=== PATIENT | female | born 1995 | race Two or more races ===

== ENCOUNTER 2017-03-29 20:51 | Emergency (ER) | payer MEDICAID ==
[~2017-03-29] VITALS: Ht 162.6 cm; Wt 77.6 kg
[2017-03-29] MEDS ORDERED: CLARITIN-D 241 EACH PO (20:56)
[2017-03-29 21:45] LABS: APPEARANCE,URINE CLEAR; KETONES,URINE NEGATIVE (NEGATIVE); LEUKOCYTE ESTERASE ,URINE 1+ (NEGATIVE); NITRITE,URINE NEGATIVE (NEGATIVE); PH,URINE 6 (4.5-8.0); PROTEIN,URINE 1+ (NEGATIVE); UROBILINOGEN,URINE 1 MG/DL (0.0-1.0)
[2017-03-29 21:50] LABS: ICTOTEST NEGATIVE
[2017-03-29 21:53] VITALS: BP 106/71
[2017-03-29 21:53] LABS: BACTERIA,URINE FEW /HPF; SQUAMOUS EPITHELIAL CELL,UR FEW /LPF (NONE/OCC); WBC,URINE 0-2 /HPF (0 - 2)
[2017-03-29] MEDS ORDERED: ZOFRAN ODT4 MG ORAL (22:03)
[2017-03-29] MEDS ORDERED: LEVOFLOXACIN750 MG ORAL (22:03)
[2017-03-29 23:00] VITALS: BP 108/69
--- NOTE | 2017-03-29 23:53 | Emergency Room Report ---
History of Present Illness General Chief Complaint: Abdominal Pain Source: Patient Present Illness HPI 22YOF with nausea/vomiting and watery diarrhea for 2 days Just came back from [place] Boyfriend and sibling sick with similar symptoms BF got better after Abx in [place] They drank the water locally Denies abd pain, urinary complaints Denies previous abd/pelvic surgery, other med problems Allergies: Coded Allergies: No Known Allergies (Unverified , 03/29/17) Patient History Past Medical History: none Past Surgical History: none Pertinent Family History: none Social History: Denies: alcohol use, drug use, smoking Last Menstrual Period: 03/27/17 Now: No : 0 Para: 0 Immunizations: UTD Reviewed Nursing Documentation: PMH: Agreed, PSxH: Agreed Nursing Documentation-PMH Past Medical History: No Stated History Review of Systems All Other Systems: negative except mentioned in HPI Physical Exam Vital Signs Date Time Temp Pulse Resp B/P Pulse Ox O2 Delivery O2 Flow Rate FiO2 03/29/17 20:53 98.8 84 14 130/87 99 Room Air Sp02 EP Interpretation: reviewed, normal General Appearance: normal inspection, well appearing, no apparent distress, alert Head: atraumatic ENT: normal ENT inspection, hearing grossly normal, normal voice Neck: normal inspection, full range of motion, supple, no bony tend Respiratory: normal inspection, lungs clear, normal breath sounds, no respiratory distress, no retraction, no wheezing Cardiovascular #1: regular rate, rhythm, no edema Gastrointestinal: normal inspection, normal bowel sounds, non tender, soft, no guarding, no hernia Genitourinary: no CVA tenderness Musculoskeletal: normal inspection, back normal, normal range of motion, Dariana' s Sign negative Neurologic: normal inspection, alert, oriented x3, responsive, green tire inspector III-XII nml as tested, motor strength/tone normal, speech normal Psychiatric: normal inspection, judgement/insight normal, mood/affect normal Skin: normal inspection, normal color, no rash Medical Decision Making Diagnostic Impression: Primary Impression: Travelers' diarrhea ER Course UA with hematuria, on menstrual cycle Abd is non-focal on serial exam VSS. Afebrile. Not septic appearing Likely traveler's diarrhea given recent travel history and sick contacts IVF and IV Levo given in ED Tolerating PO DC with 2 more days levofloxacin PRN zofran PMD followup as needed DC home Last Vital Signs Date Time Temp Pulse Resp B/P Pulse Ox O2 Delivery O2 Flow Rate FiO2 03/29/17 21:53 98.8 70 23 106/71 99 Room Air Status: improved Disposition: HOME, SELF-CARE Condition: Improved Scripts Levofloxacin* (LEVOFLOXACIN*) 750 Mg Tablet 750 MG ORAL DAILY for 2 Days, #2 TAB Prov: BEVERLEY RECINOS M.D. 03/29/17 Ondansetron Odt* (ZOFRAN ODT*) 4 Mg Tab.rapdis 4 MG ORAL Q12HR Y for Nausea & Vomiting for 7 Days, #14 TAB 0 Refills Prov: BEVERLEY RECINOS M.D. 03/29/17 Referrals: [facility]ERR[facility] (PCP) Patient Instructions: Food Poisoning and Traveling Additional Instructions: - Take ALL antibiotics until finished - Take zofran up to 2x a day for nausea/vomiting - Drink liquids, darryl maile only - soup and crackers if you can tolerate it BEVERLEY RECINOS M.D. Mar 29, 2017 23:53
[2017-03-30 00:05] VITALS: BP 110/72
[2017-03-30 00:14] VITALS: BP 110/72
== END 2017-03-30 00:14 | disposition home or self-care (01) ==
LOC: EMR 21:15
DX: R19.7 Diarrhea, unspecified (principal); R31.9 Hematuria, unspecified
CPT/HCPCS: 81003; 81025; 96360; 96374; 99284; J1956; J2405

== ENCOUNTER 2017-06-04 22:30 | Emergency (ER) | payer MEDICAID ==
[~2017-06-04] VITALS: Ht 160 cm; Wt 77.1 kg
[~2017-06-04 22:30] MED LIST: CLARITIN-D 241 EACH PO; LEVOFLOXACIN750 MG ORAL; ZOFRAN ODT4 MG ORAL
[2017-06-04] MEDS ORDERED: NKM (22:39)
[2017-06-04] MEDS ORDERED: KEFLEX500 MG ORAL (23:23)
[2017-06-04] MEDS ORDERED: IBUPROFEN600 MG ORAL (23:23)
[2017-06-04 23:26] VITALS: BP 128/67
--- NOTE | 2017-06-04 23:26 | Emergency Room Report ---
History of Present Illness General Chief Complaint: Skin Rash/Abscess Source: Patient Present Illness HPI Patient presents with 2 different complaints One is redness and irritation to the left large toe Patient had a pedicure several days ago and noticed the area becoming more red There is some mild discharge as well Denies any other fall or trauma Patient also complains of some discomfort on palpation of the right vaginal area in the lobora major region Denies any other vaginal discharge denies any fevers or chills Allergies: Coded Allergies: No Known Allergies (Unverified , 06/04/17) Patient History Past Medical History: see triage record Pertinent Family History: none Last Menstrual Period: may 20 Now: No Reviewed Nursing Documentation: PMH: Agreed, PSxH: Agreed Nursing Documentation-PMH Past Medical History: No Stated History Review of Systems All Other Systems: negative except mentioned in HPI Physical Exam Vital Signs Date Time Temp Pulse Resp B/P (MAP) Pulse Ox O2 Delivery O2 Flow Rate FiO2 06/04/17 22:34 98.1 89 16 128/67 99 Room Air Sp02 EP Interpretation: reviewed, normal General Appearance: well appearing, no apparent distress Head: normocephalic, atraumatic Eyes: bilateral eye PERRL, bilateral eye EOMI ENT: normal pharynx Neck: full range of motion, supple Respiratory: chest non-tender, lungs clear Cardiovascular #1: regular rate, rhythm, no edema Gastrointestinal: non tender, soft Genitourinary: other - Small half centimeter by half centimeter cyst/abscess palpation right lower labora major Musculoskeletal: other - Mild erythema lateral aspect of the large toe on the left side, no obvious raised nailbed Neurologic: alert, oriented x3 Skin: other - as above Lymphatic: no adenopathy Medical Decision Making Diagnostic Impression: Primary Impression: paronychia Additional Impression: abscess ER Course Patient appears to have findings of Bartholin cyst/likely infection, along with a paronychia The areas in question to not appear to require incision and this time she will be treated on oral antibiotics and followup closely with primary physician Last Vital Signs Date Time Temp Pulse Resp B/P (MAP) Pulse Ox O2 Delivery O2 Flow Rate FiO2 06/04/17 22:34 98.1 89 16 128/67 99 Room Air Status: unchanged Disposition: HOME, SELF-CARE Condition: Stable Scripts Ibuprofen* (MOTRIN*) 600 Mg Tablet 600 MG ORAL Q8H Y for For Pain, #20 TAB 0 Refills Prov: JORI JACKSON D.O. 06/04/17 Cephalexin* (KEFLEX*) 500 Mg Capsule 500 MG ORAL Q6H, #40 CAP 0 Refills Prov: JORI JACKSON D.O. 06/04/17 Patient Instructions: Bartholin Cyst or Abscess, [id number], Paronychia, Easy -to-Read Additional Instructions: Patient is provided with the discharge instructions notified to follow up with primary doctor in the next 2-3 days otherwise return to the er with any worsening symptoms. Please note that this report is being documented using [employer] technology. This can lead to erroneous entry secondary to incorrect interpretation by the dictating instrument. JORI JACKSON D.O. Jun 04, 2017 23:26
[2017-06-04 23:31] VITALS: BP 122/70
== END 2017-06-04 23:47 | disposition home or self-care (01) ==
LOC: EMR 23:47
DX: L03.032 Cellulitis of left toe (principal)
CPT/HCPCS: 99283

== ENCOUNTER 2017-07-03 22:29 | Emergency (ER) | payer MEDICAID ==
[~2017-07-03] VITALS: Ht 160 cm; Wt 77.1 kg
[~2017-07-03 22:29] MED LIST changes: +IBUPROFEN600 MG ORAL; +KEFLEX500 MG ORAL; +NKM
[2017-07-03] MEDS ORDERED: NKM (22:44)
[2017-07-03 22:50] VITALS: BP 122/81
[2017-07-03] MEDS ORDERED: Cephalexin 500mg cap ORAL ONE (23:15)
[2017-07-03] MEDS ORDERED: BACTRIM DS TAB1 EAC1 ORAL (23:20)
[2017-07-03] MEDS ORDERED: KEFLEX500 MG ORAL (23:20)
[2017-07-03 23:30] VITALS: BP 122/81
--- NOTE | 2017-07-04 07:09 | Emergency Room Report ---
History of Present Illness General Chief Complaint: Skin Rash/Abscess Source: Patient Present Illness HPI The patient is a 22-year-old female presented after increased left-sided a skin rash for the past 2 days. This a gradual onset of symptoms. Patient believes this may have began is a spider bite. The patient denied any recent trauma. Allergies: Coded Allergies: No Known Allergies (Unverified , 06/04/17) Patient History Past Medical History: see triage record Past Surgical History: unable to obtain Last Menstrual Period: May Reviewed Nursing Documentation: PMH: Agreed, PSxH: Agreed Nursing Documentation-PMH Past Medical History: No Stated History Review of Systems All Other Systems: negative except mentioned in HPI Physical Exam Vital Signs Date Time Temp Pulse Resp B/P (MAP) Pulse Ox O2 Delivery O2 Flow Rate FiO2 07/03/17 22:40 98.2 81 16 122/81 100 Room Air General Appearance: well appearing, no apparent distress, alert, GCS 15, non- toxic Head: normocephalic, atraumatic ENT: hearing grossly normal, normal voice Neck: full range of motion, supple Respiratory: no respiratory distress, speaking full sentences Cardiovascular #1: normal inspection, regular rate, rhythm, no edema Musculoskeletal: no calf tenderness Neurologic: normal gait Psychiatric: mood/affect normal Skin: no rash Medical Decision Making Diagnostic Impression: Primary Impression: Cellulitis ER Course Patient presented for left thigh rash. Differential diagnosis included wasn't limited to abscess, cellulitis, insect bite, brown recluse bite among others. Patient's benign exam and does not appear to require any further imaging or laboratory testing at this time. The patient appears to have a skin infection which is likely a staph infection. This did not appear to have a definite abscess at this time. The patient was advised to recheck the wound in 2 days. The patient was noted to have evidence of some cellulitis surrounding the central indurated area. Patient was given oral Keflex. Patient is advised to return if she began having a fever worsening redness or other concerns Labs Test 07/03/17 23:25 Urine HCG, Qualitative Negative Last Vital Signs Date Time Temp Pulse Resp B/P (MAP) Pulse Ox O2 Delivery O2 Flow Rate FiO2 07/03/17 23:30 98.2 72 16 122/81 100 Room Air Status: improved Disposition: HOME, SELF-CARE Condition: Stable Scripts Cephalexin* (KEFLEX*) 500 Mg Capsule 500 MG ORAL Q6H, #28 CAP 0 Refills Prov: Rm Mayo 07/03/17 Trimethoprim/Sulfamethoxazole 160/800* (BACTRIM DS TABLET*) 1 Each Tablet 1 TAB ORAL Q12H, #14 TAB 0 Refills Prov: Rm Mayo 07/03/17 Referrals: [facility] (PCP) Patient Instructions: Abscess Rm Mayo Jul 04, 2017 07:09
== END 2017-07-03 23:30 | disposition home or self-care (01) ==
LOC: EMR 23:13
DX: L03.116 Cellulitis of left lower limb (principal)
CPT/HCPCS: 81025; 99284

== ENCOUNTER 2017-07-05 19:43 | Emergency (ER) | payer MEDICAID ==
[~2017-07-05] VITALS: Ht 160 cm; Wt 77.1 kg
[~2017-07-05 19:43] MED LIST changes: +BACTRIM DS TAB1 EAC1 ORAL
[2017-07-05 20:36] VITALS: BP 103/66
--- NOTE | 2017-07-05 20:50 | Emergency Room Report ---
History of Present Illness General Chief Complaint: Skin Rash/Abscess Source: Patient Present Illness [facility] The patient is a 22-year-old female presenting for abscess of the left leg. She was seen in this emergency department 2 days prior for the same complaint and placed on oral antibiotics. She was told to return for incision and drainage. She states that redness has decreased but the swelling has increased. Pain is an 8/10 dull ache it is worse with touch. She denies any radiating pain. She denies any fever or chills. Allergies: Coded Allergies: No Known Allergies (Unverified , 06/04/17) Patient History Past Medical History: see triage record Pertinent Family History: none Last Menstrual Period: May Reviewed Nursing Documentation: PMH: Agreed, PSxH: Agreed Nursing Documentation-PMH Past Medical History: No Stated History Review of Systems All Other Systems: negative except mentioned in HPI Physical Exam Vital Signs Date Time Temp Pulse Resp B/P (MAP) Pulse Ox O2 Delivery O2 Flow Rate FiO2 07/05/17 20:02 98.1 76 16 103/66 98 Room Air Sp02 EP Interpretation: reviewed, normal General Appearance: no apparent distress, alert, GCS 15, non-toxic Head: normocephalic, atraumatic Eyes: bilateral eye normal inspection, bilateral eye PERRL ENT: hearing grossly normal, normal pharynx, no angioedema, normal voice Musculoskeletal: back normal, gait/station normal, normal range of motion, tender - TTP over the L lateral thigh where abscess is Neurologic: alert, oriented x3, responsive, motor strength/tone normal, sensory intact, speech normal Psychiatric: judgement/insight normal, memory normal, mood/affect normal, no suicidal/homicidal ideation Skin: rash - 3 cm in diamater flutuant abscess of L lateral thigh. Central opening. Surrounding erythema Lymphatic: no adenopathy Procedures Incision and Drainage Incision and Drainage : Consent: Verbal Site: L thigh Blade Size: 11 I & D Procedure: betadine prep, sterile drapes applied, sterile dressing applied Wound Location: lower extremity Wound's Depth, Shape: superficial, linear Wound Length (cm): 1 Wound Explored: contaminated Irrigated w/ Saline (ccs): 50 Anesthesia: 1% Lidocaine, Lidocaine w/ Epi Volume Anesthetic (ccs): 3 Splint Applied?: No Sling Applied?: No Patient Tolerated: Well Complications: None Medical Decision Making PA Attestation Dr. Mayo is my supervising physician. Patient management was discussed with my supervising physician Diagnostic Impression: Primary Impression: Abscess ER Course The patient is a 22-year-old female presenting for abscess of the left leg. Differential diagnoses considered but not limited to: abscess, cellulitis, insect bite PE: Afebrile. NAD Left thigh: There is a 3 cm diameter fluctuant, erythematous, tender abscess with a central scab. Betadine prep was used to clean the skin and surrounding area. One percent lidocaine without epinephrine was used to anesthetize the are of planned incision. A #11 blade was used to make an incision in the central area of fluctuance approximately 1/3 the size of the diameter of the abscess. Once the incision was made, purulent material was expressed with blood. Blunt dissection was then used to release loculations and expressed more purulent material. Once only blood appeared to be expressed from the incision, normal saline was used to irrigate the inside of the abscess. The wound was then cleaned and sterile dressing applied. The patient will continue to take the antibiotics that were prescribed to her. ER precautions given Last Vital Signs Date Time Temp Pulse Resp B/P (MAP) Pulse Ox O2 Delivery O2 Flow Rate FiO2 07/05/17 20:36 98.1 16 103/66 98 Room Air 07/05/17 20:36 66 Status: improved Disposition: HOME, SELF-CARE Condition: Improved Patient Instructions: Abscess Additional Instructions: I discussed my findings with the patient. All questions and concerns have been answered. Treatment and medication compliance have been addressed. I advised the patient that they need to follow up with PMD in 3-5 days. Return to ED if symptoms worsen, new symptoms arise, or if needed for any reason. Patient verbalized understanding of discharge instructions. HEBERT AMARAL Jul 05, 2017 20:49
== END 2017-07-05 20:36 | disposition home or self-care (01) ==
LOC: EMR 20:06
DX: L02.416 Cutaneous abscess of left lower limb (principal)
CPT/HCPCS: 10060; 99283

== ENCOUNTER 2019-07-16 21:13 | Emergency (ER) | payer SELFPAY ==
[~2019-07-16] VITALS: Ht 160 cm; Wt 79.4 kg
[2019-07-16] MEDS ORDERED: BACLOFEN10 MG ORAL (21:19)
[2019-07-16 21:20] VITALS: BP 124/76
[2019-07-16] MEDS ORDERED: PREDNISONE20 MG ORAL (21:30)
--- NOTE | 2019-07-16 21:31 | Emergency Room Report ---
History of Present Illness General Chief Complaint: Pain Source: Patient Present Illness HPI This is a 24-year-old female with no past medical history. She is right-hand dominant. 2 weeks ago she woke up and felt pain and numbness to her neck and arm. It has not gotten any better. Saw her doctor in the clinic 3 days ago. X -ray was negative. Now she is having some numbness and pain is shooting down her elbow and forearm area. No motor deficit. No fever chills but no nausea no vomiting. Denies any other complaint. No trauma. Pain is 7 out of 10. Allergies: Coded Allergies: No Known Allergies (Unverified , 06/04/17) Patient History Past Medical History: none, see triage record, old chart reviewed Past Surgical History: none Pertinent Family History: none Social History: Denies: smoking Last Menstrual Period: 06/16/19 Now: No Immunizations: other Reviewed Nursing Documentation: PMH: Agreed; PSxH: Agreed Nursing Documentation-PMH Past Medical History: No Stated History Review of Systems Eye: Denies: eye pain, blurred vision ENT: Denies: ear pain, nose congestion, throat swelling Respiratory: Denies: cough, shortness of breath Cardiovascular: Denies: chest pain, palpitations Gastrointestinal: Denies: abdominal pain, diarrhea, nausea, vomiting Musculoskeletal: Reports: joint pain; Denies: back pain Skin: Denies: rash Neurological: Denies: headache, numbness Endocrine: Denies: increased thirst, increased urine Hematologic/Lymphatic: Denies: easy bruising All Other Systems: negative except mentioned in HPI Physical Exam Vital Signs Date Time Temp Pulse Resp B/P (MAP) Pulse Ox O2 Delivery O2 Flow Rate FiO2 07/16/19 21:15 98.4 74 14 124/76 (92) 98 Room Air Vitals normal Sp02 EP Interpretation: reviewed, normal General Appearance: well appearing, no apparent distress, alert Head: normocephalic, atraumatic Eyes: bilateral eye PERRL, bilateral eye EOMI ENT: hearing grossly normal, normal pharynx Neck: full range of motion, supple, no meningismus Respiratory: chest non-tender, lungs clear, normal breath sounds Cardiovascular #1: regular rate, rhythm, no murmur Gastrointestinal: normal bowel sounds, non tender, no mass, no organomegaly, no bruit, non-distended Musculoskeletal: back normal, normal range of motion, gait/station normal Psychiatric: mood/affect normal Medical Decision Making Diagnostic Impression: Primary Impression: Cervical radiculopathy ER Course Patient with cervical radiculopathy. No evidence of any fracture dislocation. No septic joint. Will discharge home. Last Vital Signs Date Time Temp Pulse Resp B/P (MAP) Pulse Ox O2 Delivery O2 Flow Rate FiO2 07/16/19 21:15 98.4 74 14 124/76 (92) 98 Room Air Status: unchanged Disposition: HOME, SELF-CARE Condition: Stable Scripts Prednisone* (PREDNISONE*) 20 Mg Tablet 40 MG ORAL DAILY, #10 TAB Prov: Parish Rodas MD 07/16/19 Additional Instructions: Follow-up with your doctor in 7 days. If not better, you may need an MRI. You may also need a referral to see a neurologist for nerve conduction study if symptoms worsen. Return if worse. Parish Rodas MD Jul 16, 2019 21:31
== END 2019-07-16 21:34 | disposition home or self-care (01) ==
LOC: EMR 21:22
DX: M54.12 Radiculopathy, cervical region (principal)
CPT/HCPCS: 99282

== ENCOUNTER 2020-02-29 22:14 | Emergency (ER) | payer MEDICAID, OTHER ==
[~2020-02-29] VITALS: Ht 160 cm; Wt 77.1 kg
[~2020-02-29 22:14] MED LIST changes: +BACLOFEN10 MG ORAL; +PREDNISONE20 MG ORAL
[2020-02-29 22:35] VITALS: BP 119/80
[2020-02-29] MEDS ORDERED: IBUPROFEN600 M1 ORAL (22:51)
[2020-02-29] MEDS ORDERED: LIDODERM700 M1 TOPIC (22:51)
--- NOTE | 2020-02-29 23:00 | Emergency Room Report ---
History of Present Illness General Chief Complaint: Pain Source: Patient Present Illness HPI Disclaimer: Please note that this report is being documented using [employer] technology. This can lead to erroneous entry secondary to incorrect interpretation by the dictating instrument. HPI: 24-year-old female presents for evaluation of right-sided leg pain. Symptoms present over the past 3 days. Denies inciting injury, lifting heavy weights, awkward bending or twisting motion. She reports pain shooting from the right buttocks down the lateral portion of the right thigh and extending over the lateral aspect of the lower leg and over the foot. Also notes intermittent burning sensation and tingling. Denies changes in strength or overall sensation. No pain in the foot, ankle, knee or hip. Denies significant back pain. Denies fever, chills. Does not inject any medications. Otherwise in her usual state of health and denies other symptoms. No prior history of injury. PMH: Denies PSH: Denies Allergies: Denies Social Hx: Denies Allergies: Coded Allergies: No Known Allergies (Unverified , 06/04/17) COVID-19 Screening Contact w/high risk pt: No Experienced COVID-19 symptoms?: No COVID-19 Testing performed HAND MIXER: No Patient History Last Menstrual Period: 12/2019 Now: No : 0 Para: 0 Nursing Documentation-PMH Past Medical History: No Stated History Physical Exam Vital Signs Date Time Temp Pulse Resp B/P (MAP) Pulse Ox O2 Delivery O2 Flow Rate FiO2 02/29/20 22:25 98.2 80 16 119/80 (93) 99 Room Air General: Awake and alert, no acute distress HEENT: NC/AT. EOMI. Resp: Normal work of breathing Skin: Intact. No abrasions, laceration or rash over the exposed skin MSK: Normal tone and bulk. Moving all extremities. No obvious deformity. Ambulating with a steady gait. Strength is 5/5 at the hips, knees, ankles bilaterally. Neuro: Awake and alert. Mentating appropriately. Sensation is intact over the dermatomes of the lower extremities bilaterally. Back: No tenderness, step-off or deformity in the thoracic and lumbosacral spine. There is moderate right-sided paraspinal tenderness and tenderness over the right gluteus. Medical Decision Making Diagnostic Impression: Primary Impression: Sciatica ER Course 24-year-old female presents for evaluation of atraumatic right lower extremity pain of 3 days duration. Symptoms most consistent with a peripheral without apathy and sciatica. Patient be treated with ibuprofen and lidocaine patches. Exercises for back stretching including discharge paperwork. She shows no signs of cauda equina syndrome, spinal epidural abscess, no trauma reported to indicate fracture dislocation and overall is well-appearing with no other complaints. Do not believe she requires emergent labs or imaging on this time. Patient be discharged to follow-up on an outpatient basis with PMD/clinic. Discussed reasons to return to the ED. She understands and agrees with this treatment plan. Last Vital Signs Date Time Temp Pulse Resp B/P (MAP) Pulse Ox O2 Delivery O2 Flow Rate FiO2 02/29/20 22:25 98.2 80 16 119/80 (93) 99 Room Air Disposition: HOME, SELF-CARE Condition: Stable Scripts Ibuprofen* (MOTRIN*) 600 Mg Tablet 600 MG ORAL Q6H PRN for For Pain, #30 TAB 0 Refills Prov: Gene Connors MD 02/29/20 Lidocaine Patch* (Lidoderm Patch*) 1 Each Adh..patch 1 PATCH TOPIC DAILY, #7 PATCH 0 Refills Patch(es) may remain in place for up to 12 hours in any 24-hour period. Prov: Gene Connors MD 02/29/20 Referrals: [facility] Jony Connell [facility]. [facility] Patient Instructions: Sciatica With [facility], Sciatica Additional Instructions: Please follow-up with your primary care doctor in the next 1 to 3 days to discuss this emergency department visit and for reevaluation. If you have any new or worsening symptoms please return to the emergency department for reevaluation. Please note that this report is being documented using [employer] technology. This can lead to erroneous entry secondary to incorrect interpretation by the dictating instrument. Gene Connors MD Feb 29, 2020 23:00
[2020-02-29 23:06] VITALS: BP 119/80
== END 2020-02-29 23:06 | disposition home or self-care (01) ==
LOC: EMR 22:45
DX: M54.30 Sciatica, unspecified side (principal)
CPT/HCPCS: 99282